=== PATIENT | female | born 1980 | race Caucasian/White ===

== ENCOUNTER 2019-01-09 05:28 | Day surgery (SDC) | payer OTHER, MEDICAID ==
[2019-01-08 14:50] LABS: BASOPHILS 0.7 % (0-2); EOSINOPHILS 1.8 % (0-7); HEMATOCRIT 40.7 % (36.0-48.0); HEMOGLOBIN 13.7 g/dL (12-16); IMMATURE GRANULOCYTES 0.1 % (0-5); LYMPHOCYTES 31.5 % (15-50); MCH 31.9 pg (26.0-34.0); MCHC 33.7 g/dL (31.0-37.0); MCV 94.9 fL (80.0-100.0); MEAN PLATELET VOLUME 9.4 fL (7.4-10.4); MONOCYTES 5.7 % (2-11); NEUTROPHILS 60.2 % (40-80); PLATELET COUNT 289 10x3/uL (130-400); RBC 4.29 10x6/uL (4.00-5.40); RDW 12.8 % (11.5-14.5)
[2019-01-08 15:01] LABS: CALC OSMOLALITY 279 mosm/kg (275-300); CALCIUM 8.6 mg/dL (8.5-10.1); CARBON DIOXIDE 28.8 mmol/L (21.0-32.0); CHLORIDE - SERUM 103 mmol/L (98-107); CREATININE - SERUM 0.7 mg/dL (0.6-1.3); GLUCOSE 93 mg/dL (74-106); POTASSIUM - SERUM 3.7 mmol/L (3.5-5.1); SODIUM 141 mmol/L (136-145); UREA NITROGEN 10 mg/dL (7-18); eGFR NON AFRICAN AMERICAN > 90 mL/min (90-120)
[2019-01-09] VITALS (11 sets, daily range): BP systolic 106–124; BP diastolic 63–76; Ht 172.7 cm; Wt 115.9 kg
[~2019-01-09] VITALS: Ht 172.7 cm; Wt 115.9 kg
[~2019-01-09 05:28] MED LIST: BUSPAR5 MG PO; CELEXA20 MG PO; FLEXERIL10 MG PO; LEXAPRO20 MG PO; LINZESS290 MCG PO; NORCO 10/325 TA1 TA1 PO; OMEPRAZOLE CAP 20M PO; PRILOSEC10 MG PO; PROZAC20 MG PO
[2019-01-09 06:17] LABS: HCG URINE NEGATIVE (NEGATIVE)
[2019-01-09] MEDS ORDERED: PERCOCET 7.5/321 TAB PO (15:38)
[2019-01-09] MEDS ORDERED: IBUPROFEN800 MG PO (15:40)
--- NOTE | 2019-01-30 08:18 | OP ---
PATIENT NAME: PRATIK MARMOLEJO MEDICAL RECORD: [id number] :76 LOCATION:[facility] ADMISSION DATE: SURGEON: PRESTON WHYTE MD DATE OF OPERATION: 01/09/2019 PREOPERATIVE DIAGNOSES: 1. Dysfunctional uterine bleeding. 2. Fibroid uterus. POSTOPERATIVE DIAGNOSES: 1. Dysfunctional uterine bleeding. 2. Fibroid uterus. PROCEDURE: 1. Diagnostic laparoscopy. 2. Laparoscopic subtotal hysterectomy. 3. Mini laparotomy. SURGEON: Preston Whyte MD CENTER MAKER HAND: Dr. Taveras ANESTHESIOLOGIST: Dr. Andre. ANESTHESIA: General. FINDINGS: Uterus is enlarged and boggy with irregular contour. What was visualized of the abdominal anatomy was unremarkable. Tubes and ovaries were unremarkable. SPECIMENS REMOVED: Bilateral tubes and uterus without cervix. ESTIMATED BLOOD: 100 cc. FLUIDS: 1200 cc lactated Ringer's. URINE OUTPUT: 500 clear urine. COMPLICATIONS: None. DRAINS: Manzano to gravity, discontinued in PACU. INDICATIONS: The patient is a 38-year-old female with heavy irregular periods. The patient has what is suggestive of fibroids on ultrasound. The patient is consented for laparoscopic subtotal hysterectomy with mini laparotomy for removal of fibroid uterus. DESCRIPTION OF PROCEDURE: After informed consent was assured, the patient was taken to the operating room where anesthetic was obtained. The patient was now prepped and draped in the usual sterile fashion. An incision was made at the umbilicus to accommodate a 5-mm trocar, which was inserted without difficulty. The pneumoperitoneum was now developed. Accessory ports were placed in the right and left lower quadrants. Both right and left lower quadrant ports were 5-mm ports. The right tube is now elevated and using the coagulation cutter, the attachments of the tube to the adnexa are serially compressed, coagulated, OPERATIVE REPORT [id number] PRATIK MARMOLEJO and . The dissection was carried over the uterine ovarian ligaments and round ligaments. Anterior leaf of the broad ligament was opened and the bladder flap developed to the midline. The vessels on the right side was skeletonized, compressed, coagulated, and to the level of the internal os. Attention was now directed to the left side. Left tube is now elevated. Using the coagulation cutter, the attachments of the left tube to the adnexa are fairly serially compressed, coagulated, and . The dissection was carried down over the uterine ovarian ligaments and round ligaments. The anterior leaf of the broad ligament was opened and the bladder flap fully developed. The left vascular bundle was skeletonized, compressed, coagulated, and . Starting from the left and concluding in the right, the uterus was removed from its attachments to the cervix in a reverse cone fashion. After this had been performed, the ostia was cauterized. Adequate hemostasis has been achieved. The distal end of the uterus was grasped with laparoscopic Allis grasper. Mini laparotomy was now performed. A transverse incision was made and in the lower abdomen, carried down to the underlying layer of the fascia, which was opened in the midline and extended out. Rectus bellies were in the midline and the peritoneum entered with loss of pneumoperitoneum. The uterus was grasped with Allis and pulled from the mini laparotomy incision. After uterus and tubes were removed, the fascia was now closed with a running Vicryl stitch. Subcutaneous tissue was irrigated. Bleeding vessels cauterized and the skin reapproximated with a subcuticular stitch. Pneumoperitoneum was reestablished and with the patient again in Trendelenburg position, the pelvis was copiously irrigated and irrigant removed. Adequate hemostasis has been achieved. Accessory ports were removed under direct visualization and pneumoperitoneum was released. Primary port is now removed and all sites closed with a subcuticular stitch and sterile dressing applied. 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 01/09/19 [facility] [address] [place] [address]
== END 2019-01-09 20:30 | disposition home or self-care (01) ==
LOC: D.OPS 05:28 → D.LD 11:37 → D.OPS 20:30
PROVIDERS: ATTEND Obstetrics & Gynecology
DX: N85.2 Hypertrophy of uterus (principal); N71.1 Chronic inflammatory disease of uterus; D25.2 Subserosal leiomyoma of uterus; N80.0 Endometriosis of uterus; N93.8 Other specified abnormal uterine and vaginal bleeding; Z01.812 Encounter for preprocedural laboratory examination